=== PATIENT | female | born 1955 | race African-American/Black ===

== ENCOUNTER 2024-07-23 16:18 | Emergency (ER) | payer SELFPAY ==
[~2024-07-23] VITALS: Ht 162.6 cm; Wt 69.0 kg
[2024-07-23 16:22] VITALS: BP 139/53; PULSE 62; RESP 16; TEMP 98.2; O2SAT 100
== END 2024-07-23 17:00 | disposition left against medical advice (07) ==
LOC: ER 16:18 → EDBEDREQ 16:32 → ER 17:00
DX: R07.89 Other chest pain (principal); Z53.21 Procedure and treatment not carried out due to patient leaving prior to being seen by health care provider
CPT/HCPCS: 93005

== ENCOUNTER 2024-07-25 10:00 | Inpatient (IN) | payer OTHER ==
[~2024-07-25] VITALS: Ht 162.6 cm; Wt 110.2 kg
[2024-07-25 10:01] VITALS: O2SAT 98
[2024-07-25 10:53] LABS: BASOPHILS % 1.2 % (0.0-2.0); EOSINOPHILS % 1.8 % (0.0-5.0); HEMOGLOBIN. 12.6 g/dL (12.0-16.0); LYMPHOCYTES % 23.9 % (20.0-50.0); MEAN CORPUSCULAR HEMOGLOBIN 28.9 pg (28.0-32.0); MEAN CORPUSCULAR HGB CONC 32.3 g/dL (31.0-37.0); MEAN CORPUSCULAR VOLUME 89.6 fL (81.0-99.0); MEAN PLATELET VOLUME 9.7 fl (7.4-10.4); NEUTROPHILS % 65.1 % (40.0-76.0); PLATELET 187 x1000/uL (130-400); RED BLOOD CELL COUNT 4.35 mill/uL (4.2-5.4); RED CELL DISTRIBUTION WIDTH 15.2 % (11.6-14.6); WHITE BLOOD COUNT 4.9 x1000/uL (4.5-11.0)
[2024-07-25 10:58] LABS: CHLORIDE 109 mEq/L (98-107); POTASSIUM 3.8 mEq/L (3.5-5.1); SODIUM 143 mEq/L (136-145)
[2024-07-25 10:59] LABS: PROTHROMBIN TIME 11.4 sec (9.6-11.0)
[2024-07-25 11:00] LABS: CALCIUM 9.8 mg/dL (8.7-10.4); CARBON DIOXIDE 28 mEq/L (21-32)
[2024-07-25 11:05] LABS: CREATININE 1.2 mg/dL (0.6-1.0); GLUCOSE 94 mg/dL (70-105); TROPONIN I HIGH SENSITIVITY 12 ng/L (3.0-34); UREA NITROGEN BLOOD 20 mg/dL (9-23)
[2024-07-25 11:06] LABS: ALANINE AMINOTRANSFERASE 142 IU/L (10-49); ALBUMIN 3.9 g/dL (3.2-4.8); ASPARTATE AMINOTRANSFERASE 132 IU/L (<34)
[2024-07-25 11:07] LABS: BILIRUBIN DIRECT 0.3 mg/dL (<=3.0)
[2024-07-25 11:08] LABS: BILIRUBIN TOTAL 0.9 mg/dL (0.1-1.0)
[2024-07-25] MEDS ORDERED: DOCUSATE SODIUM 100MG CAPSULE PO PRN (15:15)
[2024-07-25] MEDS ORDERED: CLONIDINE 0.1MG TABLET PO PRN (15:15)
[2024-07-25] MEDS ORDERED: ACETAMINOPHEN 325MG TABLET PO PRN ×2 (15:15)
[2024-07-25] MEDS ORDERED: IPRATROPIUM/ALBUTEROL 0.5-3(2.5)MG/3ML NEB NEB PRN (15:15)
[2024-07-25] MEDS ORDERED: ONDANSETRON HCL 4MG/2ML INJ IV PRN (15:15)
[2024-07-25] MEDS ORDERED: GUAIFENESIN 200MG/10ML SUGAR FREE UDC PO PRN (15:15)
[2024-07-25] MEDS ORDERED: ZOLPIDEM TARTRATE 5MG TABLET PO PRN (15:15)
[2024-07-25] MEDS ORDERED: MAGNESIUM/ALUMINUM HYDROXIDE/SIMETHICONE 30ML UDC PO PRN (15:15)
[2024-07-25] MEDS ORDERED: NITROGLYCERIN 0.4MG TABLET SL SL PRN (15:15)
[2024-07-25 15:35] LABS: TROPONIN I HIGH SENSITIVITY 26 ng/L (3.0-34)
[2024-07-25 16:20] LABS: IRON 97 ug/dL (50-170)
[2024-07-25 16:21] LABS: TRIGLYCERIDE 77 mg/dL (0-150)
[2024-07-25 16:22] LABS: LDL CHOLESTEROL 107 mg/dL (5-100)
[2024-07-25 16:23] LABS: CHOLESTEROL 170 mg/dL (<200); HDL CHOLESTEROL 54 mg/dL (>65); TOTAL IRON BINDING CAPACITY 309 ug/dl (250-425)
[2024-07-25 16:26] LABS: VITAMIN B12 SERUM 842 pg/mL (211-911)
[2024-07-25 16:26] LABS: T4 FREE 1.23 ng/dL (0.89-1.76); THYROID STIMULATING HORMONE 1.16 uIU/mL (0.55-4.78)
[2024-07-25 16:27] LABS: FOLIC ACID (FOLATE) SERUM 17.86 ng/mL (>5.38)
[2024-07-25] MEDS: ENOXAPARIN 40MG/0.4ML SYR SUBCUT SCH (17:26)
[2024-07-25] MEDS: FAMOTIDINE 20MG TABLET PO SCH (21:00)
[2024-07-26 00:35] LABS: CREATINE KINASE MB FRACTION 0.7 ng/mL (0.5-3.6)
[2024-07-26 00:36] LABS: TROPONIN I HIGH SENSITIVITY 13 ng/L (3.0-34)
[2024-07-26 00:37] LABS: CREATINE KINASE 113 IU/L (34-145)
[2024-07-26 02:11] LABS: CLARITY URINE CLOUDY (CLEAR); COLOR URINE YELLOW (YELLOW); GLUCOSE URINE NEGATIVE (NEGATIVE); KETONES URINE NEGATIVE (NEGATIVE); LEUKOCYTE ESTERASE URINE 2+ (NEGATIVE); NITRITE URINE NEGATIVE (NEGATIVE); OCCULT BLOOD URINE NEGATIVE (NEGATIVE); PH URINE 6.5 (4.5-8.0); PROTEIN URINE NEGATIVE (NEGATIVE); SPECIFIC GRAVITY URINE 1.025 (1.005-1.030)
[2024-07-26 02:21] LABS: *AMPHETAMINES SCREEN URINE NEGATIVE (NEGATIVE); *BARBITURATES SCREEN URINE NEGATIVE (NEGATIVE); *BENZODIAZEPINES SCREEN URINE NEGATIVE (NEGATIVE); *COCAINE SCREEN URINE NEGATIVE (NEGATIVE); METHADONE URINE SCREEN NEGATIVE (NEGATIVE); OPIATES URINE SCREEN NEGATIVE (NEGATIVE)
[2024-07-26 02:22] LABS: CANNABINOID URINE SCREEN NEGATIVE (NEGATIVE); ECSTASY MDMA SCREEN URINE NEGATIVE (NEGATIVE); PHENCYCLIDINE URINE SCREEN NEGATIVE (NEGATIVE)
[2024-07-26 02:37] LABS: RBC URINE 0-2 /hpf (0-2); SQUAMOUS EPITHELIAL CELL URINE FEW /lpf (RARE/1+)
[2024-07-26 02:38] LABS: BACTERIA URINE 1+
[2024-07-26 05:07] LABS: EOSINOPHILS % 2.9 % (0.0-5.0); HEMATOCRIT. 35.5 % (36.0-48.0); HEMOGLOBIN. 11.7 g/dL (12.0-16.0); LYMPHOCYTES % 18.7 % (20.0-50.0); MEAN CORPUSCULAR HEMOGLOBIN 29.7 pg (28.0-32.0); MEAN CORPUSCULAR HGB CONC 33.1 g/dL (31.0-37.0); MEAN CORPUSCULAR VOLUME 89.7 fL (81.0-99.0); MEAN PLATELET VOLUME 9.5 fl (7.4-10.4); MONOCYTES % 10.4 % (2.0-8.0); PLATELET 174 x1000/uL (130-400); RED BLOOD CELL COUNT 3.95 mill/uL (4.2-5.4); WHITE BLOOD COUNT 5.3 x1000/uL (4.5-11.0)
[2024-07-26 05:21] LABS: CARBON DIOXIDE 30 mEq/L (21-32); CHLORIDE 108 mEq/L (98-107); POTASSIUM 3.9 mEq/L (3.5-5.1); SODIUM 142 mEq/L (136-145)
[2024-07-26 05:22] LABS: CALCIUM 9.5 mg/dL (8.7-10.4)
[2024-07-26 05:25] LABS: CREATINE KINASE MB FRACTION 0.9 ng/mL (0.5-3.6); TROPONIN I HIGH SENSITIVITY 11 ng/L (3.0-34)
[2024-07-26 05:27] LABS: CREATININE 1.3 mg/dL (0.6-1.0); GLUCOSE 100 mg/dL (70-105); UREA NITROGEN BLOOD 22 mg/dL (9-23)
[2024-07-26 05:28] LABS: ALBUMIN 3.7 g/dL (3.2-4.8)
[2024-07-26 05:29] LABS: ALANINE AMINOTRANSFERASE 137 IU/L (10-49); ASPARTATE AMINOTRANSFERASE 123 IU/L (<34); BILIRUBIN TOTAL 0.6 mg/dL (0.1-1.0); CREATINE KINASE 139 IU/L (34-145); PROTEIN TOTAL 6.6 g/dL (6.0-8.3)
[2024-07-26] MEDS: ASPIRIN 81MG EC TABLET PO SCH (09:00)
[2024-07-26] MEDS: NITROGLYCERIN OINT 1GM/INCH UDPKT TD SCH (09:45)
[2024-07-26 11:58] VITALS: BP 139/56; PULSE 57; RESP 17; TEMP 36.3068
[2024-07-26 12:00] VITALS: BP 139/56; PULSE 57; RESP 18; TEMP 36.28068; O2SAT 98
[2024-07-26 16:00] VITALS: BP 123/50; PULSE 59; RESP 18; TEMP 36.28068; O2SAT 98
[2024-07-26] MEDS: ENOXAPARIN 30MG/0.3ML SYR SUBCUT SCH (18:00)
[2024-07-26] MEDS: PNEUMOCOCCAL 20-VAL CONJ-DIP CRM 0.5ML IM ONE (18:00)
[2024-07-26] MEDS: INFLUENZA VACCINE 05/PF 0.5 ML SYRINGE IM ONE (18:00)
[2024-07-26 20:00] VITALS: BP 132/47; PULSE 64; RESP 20; TEMP 36.61404; O2SAT 95
[2024-07-27] VITALS (7 sets, daily range): BP systolic 110–146; BP diastolic 33–63; PULSE 53–66; RESP 16–20; TEMP 36.3918–36.61404; O2SAT 95–98
== END 2024-07-27 22:30 | disposition short-term general hospital (02) | DRG 311 ==
LOC: ER 10:07 → MICUSO 12:35 → EDBEDREQ 12:52 → EDBEDREQTM 12:52 → 7EST 07-26 11:41
PROVIDERS: ADMIT Internal Medicine; ATTEND Internal Medicine
DX: I20.0 Unstable angina (principal); Z68.41 Body mass index [BMI] 40.0-44.9, adult; I16.0 Hypertensive urgency; N18.30 Chronic kidney disease, stage 3 unspecified; E78.00 Pure hypercholesterolemia, unspecified; I12.9 Hypertensive chronic kidney disease with stage 1 through stage 4 chronic kidney disease, or unspecified chronic kidney disease; E66.9 Obesity, unspecified; R00.1 Bradycardia, unspecified; Z82.49 Family history of ischemic heart disease and other diseases of the circulatory system
CPT/HCPCS: 36415; 71045; 80048; 80053; 80061; 80076; 80305; 81003; 82550; 82553; 82607; 82746; 83036; 83540; 83550; 83735; 84100; 84439; 84443; 84484; 85025; 90686; 90732; 93005; 93306; 93970; 99285; J1650